=== PATIENT | male | born 1980 | race Caucasian/White ===

== ENCOUNTER 2019-02-03 15:30 | Emergency (ER) | payer SELFPAY | END 2019-02-03 19:02 | disposition home or self-care (01) | LOC: FTE 15:30 | DX: S90.01XA Contusion of right ankle, initial encounter (principal); W50.1XXA Accidental kick by another person, initial encounter; Y92.322 Soccer field as the place of occurrence of the external cause | CPT/HCPCS: 73590; 93971; 99284-25 ==